=== PATIENT | female | born 1955 | race Caucasian/White ===

== ENCOUNTER 2018-11-27 11:01 | Observation (INO) | payer OTHER ==
--- OUTSIDE RECORDS SUMMARY | 2018-11-27 11:03 | XMS REPORT | Clinical Summary ---
:1955 Author Organization [facility] Address [address] [place] [address] Care Team Providers Name Role Phone Asked, No Pcp Primary Care Provider Unavailable Allergies Active Allergy Reactions Severity Noted Date Comments Clindamycin Hives, Itching 08/15/2018 Medications Medication Sig Dispensed Refills Start Date End Date Status levothyroxine Take 112 mcg 0 Active (SYNTHROID, LEVOXYL) by mouth 112 mcg tablet every morning. multivitamin Take 1 tablet 0 Active (THERAGRAN) tablet by mouth daily. cholecalciferol, Take 1 0 Active vitamin D3, (VITAMIN capsule by D3 ORAL) mouth daily. aspirin (ECOTRIN) 81 Take 81 mg by 0 Active MG enteric coated mouth tablet nightly. apremilast (OTEZLA) Take 30 mg by 0 Active 30 mg tablet mouth 2 (two) times a day. atorvastatin Take 1 tablet 30 tablet 0 08/16/2018 Discontinued (LIPITOR) 40 MG (40 mg total) 8 tablet by mouth nightly for 30 days. cyclobenzaprine Take 1 tablet 7 tablet 0 08/16/2018 Discontinued (FLEXERIL) 5 mg (5 mg total) 8 tablet by mouth 3 (three) times a day as needed for muscle spasms for up to 30 days. atorvastatin Take 1 tablet 30 tablet 0 08/16/2018 (LIPITOR) 40 MG (40 mg total) 8 tablet by mouth nightly for 30 days. cyclobenzaprine Take 1 tablet 7 tablet 0 08/16/2018 (FLEXERIL) 5 mg (5 mg total) 8 tablet by mouth 3 (three) times a day as needed for muscle spasms for up to 30 days. Active Problems Problem Noted Date Chest pain in adult 08/15/2018 Encounters Date Type Specialty Care Team Description 08/15/2018 - Emergency General Internal Eadeh, Eleonora, MD Chest pain in adult 08/16/2018 Medicine Mignon Zepeda (Primary Dx) MD Mónica after 11/26/2017 Immunizations Name Dates Previously Given Next Due FLUCELVAX QUAD PF (0.5mL syringe) 08/16/2018 Social History Tobacco Use Types Packs/Day Years Used Date Never Assessed Sex Assigned at Date Recorded Not on file Job Start Date Occupation Industry Not on file Not on file Not on file Travel History Travel Start Travel End No recent travel history available. Last Filed Vital Signs Vital Sign Reading Time Taken Blood Pressure 114/58 08/16/2018 12:35 PM [employer] Pulse 66 08/16/2018 12:35 PM [employer] Temperature 35.8 C (96.4 F) 08/16/2018 12:35 PM [employer] Respiratory Rate 18 08/16/2018 12:35 PM [employer] Oxygen Saturation 98% 08/16/2018 12:35 PM [employer] Inhaled Oxygen Concentration - - Weight 87.5 kg (192 lb 12.8 oz) 08/15/2018 8:58 PM [employer] Height 165.1 cm (5' 5") 08/15/2018 8:58 PM [employer] Body Mass Index 32.08 08/15/2018 8:58 PM [employer] Plan of Treatment Health Maintenance Due Date Last Done Comments CERVICAL CANCER SCREENING 1978 BREAST CANCER SCREENING 2007 COLON CANCER SCREENING 2007 SHINGLES VACCINES (#1) 2007 INFLUENZA VACCINE Completed 08/16/2018 Procedures Procedure Name Priority Date/Time Associated Comments Diagnosis POC GLUCOSE Routine 08/16/2018 9:42 Results for this AM [employer] procedure are in the results section. CV CTA CORONARY Routine 08/16/2018 8:40 Results for this ARTERIES W CONTRAST AM [employer] procedure are in the results section. ESTIMATED GFR Routine 08/16/2018 3:39 Results for this AM [employer] procedure are in the results section. TROPONIN Routine 08/16/2018 3:39 Results for this AM [employer] procedure are in the results section. HEMOGLOBIN A1C Routine 08/16/2018 3:39 Results for this AM [employer] procedure are in the results section. PROTHROMBIN TIME WITH Routine 08/16/2018 3:39 Results for this INR AM [employer] procedure are in the results section. HC COMPLETE BLD COUNT Routine 08/16/2018 3:39 Results for this W/AUTO DIFF AM [employer] procedure are in the results section. PHOSPHORUS LEVEL Routine 08/16/2018 3:39 Results for this AM [employer] procedure are in the results section. MAGNESIUM LEVEL Routine 08/16/2018 3:39 Results for this AM [employer] procedure are in the results section. THYROID STIMULATING Routine 08/16/2018 3:39 Results for this HORMONE AM [employer] procedure are in the results section. LIPID PANEL Routine 08/16/2018 3:39 Results for this AM [employer] procedure are in the results section. CREATINE KINASE, TOTAL Routine 08/16/2018 3:39 Results for this (CPK) AM [employer] procedure are in the results section. BASIC METABOLIC PANEL Routine 08/16/2018 3:39 Results for this AM [employer] procedure are in the results section. TROPONIN Routine 08/15/2018 9:36 Results for this PM [employer] procedure are in the results section. ECG 12-LEAD Routine 08/15/2018 9:09 Results for this PM [employer] procedure are in the results section. XR CHEST 1 VW PORTABLE STAT 08/15/2018 7:54 Results for this PM [employer] procedure are in the results section. ESTIMATED GFR STAT 08/15/2018 4:40 Results for this PM [employer] procedure are in the results section. TROPONIN STAT 08/15/2018 4:40 Results for this PM [employer] procedure are in the results section. COMPREHENSIVE STAT 08/15/2018 4:40 Results for this METABOLIC PANEL PM [employer] procedure are in the results section. HC COMPLETE BLD COUNT STAT 08/15/2018 4:40 Results for this W/AUTO DIFF PM [employer] procedure are in the results section. ECG 12-LEAD STAT 08/15/2018 4:22 Results for this PM [employer] procedure are in the results section. after 11/26/2017 Results POC glucose (08/16/2018 9:42 AM [employer]) POC glucose 96 65 - 99 mg/dL [facility] Comment: [facility] Notified RN Meter ID: [id number] Farrowing Manager: Kel Moya Performing Organization Address City/State/Zipcode Phone Number [facility] DEPARTMENT OF PATHOLOGY AND [address] [place] [phone] GENOMIC MEDICINE [address] [address] Cv cta coronary arteries w contrast and ffr if needed (08/16/2018 8:40 AM [employer]) Narrative Performed At [facility] Nuclear Cardiology and Cardiac CT [address] [place] [address] CTA Coronary Arteries Report Pat.Name:FALGUNI LEYVA Pat.ID:[id number] .Date: 08/16/2018 Refer.MD:MIGNON ZEPEDA MD Exam Time: 8:17:00 AMStudy Type:CTA Coronary Arteries Height:65inWeight: 192lb BSA: 1.95 m2 DOBAge:1954,63Y Sex: FEMALEBP: 127/60 HR:51 bpm Nuclear Tech:RUMA Anthony(N)(CT) CPT - 4: Krishna PayNuclear Event ID: [id number] Order ID:[id number] Reason for Study:CAD Procedures:CT Prospective (intervals) Race:C SUMMARY: Technique: IV contrast was administered and sequential 0.[address] cuts were obtained through the chest using [facility] Obatech CT scanner. Post-processing and 3D reconstruction were done using the [employer] workstation. Interactive image viewing and volumetric display and analysis were also performed. CTA RESULTS Left Main: A normal sized4.6 mm artery which arises normally from the left sinus of Valsalva and divides into the left anterior descending and circumflex coronary arteries. No significant atherosclerotic plaque is present. Left anterior descending (LAD): A normal sized 3.5mm artery which wraps around the apex and gives off three diagonal branches. No significant atherosclerotic plaque is present. The first diagonal is a 1.0 mm artery which has no significant atherosclerotic plaque. The second diagonal is a 1.2 mm artery which has no significant atherosclerotic plaque. The third diagonal is a 1.5 mm artery which has no significant atherosclerotic plaque. Left circumflex: A normal sized 4.0 mm non-dominant artery which gives off two major obtuse marginal arteries before terminating in the AV groove. No significant atherosclerotic plaque is present. The first obtuse marginal is a 3.6 mm bifurcating artery which has no significant atherosclerotic plaque. The second obtuse marginal is a 2.2 mm bifurcating artery which has mild calcified atherosclerotic plaque but no significant stenosis. Right coronary artery: A normal sized 4.1 mm dominant artery which arises normally from the right sinus of Valsalva and gives off several right ventricular branches, the posterior descending artery and the posterolateral artery.Mild calcified and noncalcified atherosclerotic plaque is present in the proximal and mid segments with approximately 30% stenosis in the mid segment. The posterior descending is a 1.3 mm artery which has no significant atherosclerotic plaque. The posterolateral branch is a 2.2 mm trifurcating artery which has no significant atherosclerotic plaque. Stents: None. Bypass Grafts: None. Pulmonary Arteries: Normal pulmonary artery sizes with no proximal thrombus identified. Left Atrial and Pulmonary Vein(PV) Dimensions: Left atrial size (A-P diameter) 3.1 cm. Normal PV anatomy Left superior PV15 mm. Left inferior PV14 mm. Right superior PV16 mm. Right inferior PV16 mm. There is no evidence of the left atrial appendage clot. Left Ventricular Valve Morphology/Function: LV septal wall thickness 9 mm. Aortic valve has no evidence of regurgitation. Mitral valve is normal without significant stenosis. Thoracic Aortic Dimensions: No aortic aneurysm or dissection is seen. Aortic root: 3.0 cm. Sinotubular junction 2.5 cm. Mid ascending thoracic aorta 2.7 cm. Descending thoracic aorta 2.4 cm. Pericardium: No pericardial effusion or pericardial thickening. Non-Cardiac Findings: Small hiatal hernia. CONCLUSION CT coronary angiography shows has mild coronary atherosclerosis but no significant stenosis. Normal PV anatomy. No aortic aneurysm or dissection is seen. There is no evidence of left atrial appendage thrombus. Small hiatal hernia. STUDY QUALITY The study quality is excellent. COMMENTS: None. The above report was based on a dedicated Cardiovascular CTA Protocol and interpreted by a Branch Rental Manager.Should a more comprehensive assessment of non-cardiovascular findings be desired, please consult a radiologist.These images are available in the [facility] [employer] PACS system. Signed 08/16/2018 12:55 PM Deon Christy MD Procedure Note Interface, Radiology Results In - 08/16/2018 12:55 PM [employer] Nuclear Cardiology and Cardiac CT [address] [address] CTA Coronary Arteries Report Pat.Name: LINDAFALGUNI Bradley Pat.ID: [id number] .Date: 08/16/2018 Refer.MD: MIGNON ZEPEDA MD Exam Time: 8:17:00 AM Study Type:CTA Coronary Arteries Height: 65in Weight: 192lb BSA: 1.95 m2 Age: 11 1955,63Y Sex: FEMALE BP: 127/60 HR: 51 bpm Nuclear Tech:RUMA Anthony(Jose Carlos)(CT) CPT - 4: Krishna Pay Nuclear Event ID:[id number] Order ID: [id number] Reason for Study:CAD Procedures:CT Prospective (intervals) Race: C SUMMARY: Technique: IV contrast was administered and sequential 0.[address] cuts were obtained through the chest using the Siem[employer] Somatom Force CT scanner. Post-processing and 3D reconstruction were done using the [employer] workstation. Interactive image viewing and volumetric display and analysis were also performed. CTA RESULTS Left Main: A normal sized 4.6 mm artery which arises normally from the left sinus of Valsalva and divides into the left anterior descending and circumflex coronary arteries. No significant atherosclerotic plaque is present. Left anterior descending (LAD): A normal sized 3.5mm artery which wraps around the apex and gives off three diagonal branches. No significant atherosclerotic plaque is present. The first diagonal is a 1.0 mm artery which has no significant atherosclerotic plaque. The second diagonal is a 1.2 mm artery which has no significant atherosclerotic plaque. The third diagonal is a 1.5 mm artery which has no significant atherosclerotic plaque. Left circumflex: A normal sized 4.0 mm non-dominant artery which gives off two major obtuse marginal arteries before terminating in the AV groove. No significant atherosclerotic plaque is present. The first obtuse marginal is a 3.6 mm bifurcating artery which has no significant atherosclerotic plaque. The second obtuse marginal is a 2.2 mm bifurcating artery which has mild calcified atherosclerotic plaque but no significant stenosis. Right coronary artery: A normal sized 4.1 mm dominant artery which arises normally from the right sinus of Valsalva and gives off several right ventricular branches, the posterior descending artery and the posterolateral artery. Mild calcified and noncalcified atherosclerotic plaque is present in the proximal and mid segments with approximately 30% stenosis in the mid segment. The posterior descending is a 1.3 mm artery which has no significant atherosclerotic plaque. The posterolateral branch is a 2.2 mm trifurcating artery which has no significant atherosclerotic plaque. Stents: None. Bypass Grafts: None. Pulmonary Arteries: Normal pulmonary artery sizes with no proximal thrombus identified. Left Atrial and Pulmonary Vein (PV) Dimensions: Left atrial size (A-P diameter) 3.1 cm. Normal PV anatomy Left superior PV15 mm. Left inferior PV14 mm. Right superior PV16 mm. Right inferior PV16 mm. There is no evidence of the left atrial appendage clot. Left Ventricular Valve Morphology/Function: LV septal wall thickness 9 mm. Aortic valve has no evidence of regurgitation. Mitral valve is normal without significant stenosis. Thoracic Aortic Dimensions: No aortic aneurysm or dissection is seen. Aortic root: 3.0 cm. Sinotubular junction 2.5 cm. Mid ascending thoracic aorta 2.7 cm. Descending thoracic aorta 2.4 cm. Pericardium: No pericardial effusion or pericardial thickening. Non-Cardiac Findings: Small hiatal hernia. CONCLUSION CT coronary angiography shows has mild coronary atherosclerosis but no significant stenosis. Normal PV anatomy. No aortic aneurysm or dissection is seen. There is no evidence of left atrial appendage thrombus. Small hiatal hernia. STUDY QUALITY The study quality is excellent. COMMENTS: None. The above report was based on a dedicated Cardiovascular CTA Protocol and interpreted by a Branch Rental Manager. Should a more comprehensive assessment of non-cardiovascular findings be desired, please consult a radiologist. These images are available in the [facility] [employer] PACS system. Signed 08/16/2018 12:55 PM Deon Christy MD Performing Organization Address City/State/Zipcode Phone Number [facility] [address] [place] [address] Estimated GFR (08/16/2018 3:39 AM [employer])Only the most recent of2 resultswithin the time period is included. Estimated GFR >=90 mL/min/1.73 m2 [facility] Comment: HOSPITAL CatergoryUnitsInterpretation G1 >=90 Normal or high G2 60-89Mildly decreased [id number] to moderately decreased [id number] to severely decreased G4 15-29Severely decreased G5 <15Kidney failure The eGFR was calculated using the Chronic Kidney Disease Epidemiology Collaboration (CKD-EPI) equation. Interpretation is based on recommendations of the National Kidney Foundation-Kidney Disease Outcomes Quality Initiative (NKF-KDOQI) published in 2014. Specimen Plasma specimen Performing Organization Address City/[facility] Phone Number [facility] DEPARTMENT OF PATHOLOGY AND [address] [place] [address] Troponin (08/16/2018 3:39 AM [employer])Only the most recent of3 resultswithin the time period is included. Troponin <0.30 0.00 - 0.30 ng/mL [facility] Comment: 0.30 - 1.49 ng/mlMay indicate increased risk of acute coronary syndrome. >=1.5 ng/mlConsistent with acute myocardial infarction. The diagnostic value of a single normal or non-diagnostic result is questionable.Serial samples at 2-6 hour intervals are required to rule out acute myocardial injury. Specimen Plasma specimen Performing Organization Address [place]/[facility] Phone Number [facility] DEPARTMENT OF PATHOLOGY AND [address] [place] [address] Prothrombin time with INR (08/16/2018 3:39 AM [employer]) Prothrombin time 13.5 11.5 - 14.5 sec [facility] INR 1.1 [facility] Comment: HOSPITAL The International Normalized Ratio (INR) is a therapeutic monitoring tool for patients who are stable on oral anticoagulant therapy. An INR of 2.0-3.0 is suggested for deep vein thrombosis/pulmonary embolism. Specimen Blood Performing Organization Address [place]/[facility] Phone Number [facility] DEPARTMENT OF PATHOLOGY AND [address] [place] [address] CBC with platelet and differential (08/16/2018 3:39 AM [employer])Only the most recent of2 resultswithin the time period is included. WBC 6.00 4.50 - 11.00 k/uL [facility] RBC 4.13 (L) 4.20 - 5.50 m/uL [facility] HGB 12.5 12.0 - 16.0 g/dL [facility] HCT 37.0 37.0 - 47.0 % [facility] MCV 89.6 82.0 - 100.0 fL [facility] MCH 30.3 27.0 - 34.0 pg [facility] MCHC 33.8 31.0 - 37.0 g/dL [facility] RDW - SD 38.7 37.0 - 55.0 fL [facility] MPV 10.1 8.8 - 13.2 fL [facility] Platelet count 239 150 - 400 k/uL [facility] Nucleated RBC 0.00 /100 WBC [facility] Neutrophils 43.8 39.0 - 69.0 % [facility] Lymphocytes 46.5 (H) 25.0 - 45.0 % [facility] Monocytes 7.2 0.0 - 10.0 % [facility] Eosinophils 1.5 0.0 - 5.0 % [facility] Basophils 0.7 0.0 - 1.0 % [facility] Immature granulocytes 0.3Comment: "Immature 0.0 - 1.0 % [facility] (promyelocytes, myelocytes, metamyelocytes) Specimen Blood Performing Organization Address [place]/[facility] Phone Number [facility] DEPARTMENT OF PATHOLOGY AND [address] [place] [phone] [address] Thyroid stimulating hormone (08/16/2018 3:39 AM [employer]) TSH 2.02 0.27 - 4.20 uIU/mL [facility] Specimen Plasma specimen Performing Organization Address City/[facility] Phone Number [facility] DEPARTMENT OF PATHOLOGY AND [address] [place] [phone] [address] Phosphorus level (08/16/2018 3:39 AM [employer]) Phosphorus 3.6 2.4 - 4.5 mg/dL [facility] Specimen Plasma specimen Performing Organization Address [place]/[facility] Phone Number [facility] DEPARTMENT OF PATHOLOGY AND [address] [place] [phone] [address] Magnesium level (08/16/2018 3:39 AM [employer]) Magnesium 2.2 1.6 - 2.4 mg/dL [facility] Specimen Plasma specimen Performing Organization Address City/[facility] Phone Number [facility] DEPARTMENT OF PATHOLOGY AND [address] [place] [phone] Hemoglobin A1c (08/16/2018 3:39 AM [employer]) Hemoglobin A1C 5.6 4.0 - 5.6 % [facility] Comment: HbA1c cutoffs for diagnosing diabetes: 4.0% - 5.6%=normal 5.7% - 6.4%=increased risk for diabetes (prediabetes) >=6.5%=diabetes Goals for glycemic control (ADA 2016) < 7.0%Target for non adults with diabetes. More or less stringent targets may be appropriate for individual patients. <7.5% Target for Children and adolescents with type 1 diabetes. Specimen Blood Performing Organization Address City/[facility] Phone Number [facility] DEPARTMENT OF PATHOLOGY AND [address] [place] [phone] Creatine kinase, total (CPK) (08/16/2018 3:39 AM [employer]) Creatine kinase 101 26 - 192 U/L [facility] Specimen Plasma specimen Performing Organization Address City/[facility] Phone Number [facility] DEPARTMENT OF PATHOLOGY AND [address] [place] [phone] Lipid panel (08/16/2018 3:39 AM [employer]) Cholesterol 185 <200 mg/dL [facility] Triglycerides 253 (H) <150 mg/dL [facility] HDL cholesterol 32 (L) >40 mg/dL [facility] LDL cholesterol 123 (H)Comment: Result <100 mg/dL [facility] obtained by direct [facility] measurement Lipid panel interpretation [employer]ch[employer] [facility] Comment: HOSPITAL Total Cholesterol (mg/dL) <200 Desirable 263-975Zpucmmiyea-mfhl >=240High Triglycerides (mg/dL) <150 Normal 731-200Xueyyrnfjt-krbu 200-499High >=500Very high HDL Cholesterol (mg/dL) <40Low (male) <40Low (female) LDL Cholesterol (mg/dL) <100 Optimal 100-129Near or above optimal 104-939Zdiregijcf-tyrs 160-189High >=190Very high Risk Catergories that modify LDL goals. Risk CatergoriesLDL goal (mg/dL) CHD and CHD risk equivalent<100 (10-year risk >20%) Multiple (2+) risk factors <130 (10-year risk=<20%) 0-1 risk factors <160 (<10-year risk) Defining levels of lipids in metabolic syndrome Triglycerides>=150 mg/dL HDL Cholesterol Men<40 mg/dL Women<40 mg/dL Non-HDL cholesterol is a second target for therapy in persons with high triglycerides (>=200 mg/dL) Specimen Plasma specimen Performing Organization Address City/[facility] Phone Number [facility] DEPARTMENT OF PATHOLOGY AND [address] [place] [address] Basic metabolic panel (08/16/2018 3:39 AM [employer]) Sodium 142 135 - 148 mEq/L [facility] Potassium 3.9 3.5 - 5.0 mEq/L [facility] Chloride 107 98 - 112 mEq/L [facility] CO2 22 (L) 24 - 31 mEq/L [facility] Anion gap 13@ANIO 7 - 15 mEq/L [facility] BUN 18 8 - 23 mg/dL [facility] Creatinine 0.60 0.50 - 0.90 mg/dL [facility] Glucose 117 (H) 65 - 99 mg/dL [facility] Calcium 8.9 8.8 - 10.2 mg/dL [facility] Specimen Plasma specimen Performing Organization Address City/[facility] Phone Number [facility] DEPARTMENT OF PATHOLOGY AND [address] [place] [address] ECG 12 lead (08/15/2018 9:09 PM [employer])Only the most recent of2 resultswithin the time period is included. Ventricular rate 76 [facility] Atrial rate 76 [facility] AR interval 126 [facility] QRSD interval 88 [facility] QT interval 402 [facility] QTC interval 452 [facility] MUSE P axis 1 80 [facility] MUSE QRS axis 1 109 [facility] MUSE T wave axis 92 [facility] MUSE EKG impression Normal sinus rhythm-Rightward [facility] MUSE axis-Nonspecific T wave abnormality-Abnormal ECG-In automated comparison with ECG of 15-AUG-2018 16:22,-QRS axis shifted right- Narrative Performed At Performing Organization Address [place]/[facility] Phone Number [facility] MUSE [address] [place] [address] XR Chest 1 Vw Portable (08/15/2018 7:54 PM [employer]) Narrative Performed At EXAMINATION:XR CHEST 1 VW PORTABLE [facility] CLINICAL HISTORY:chest pain XR CHEST 1 VW PORTABLEimages are submitted COMPARISON:NONE FINDINGS: Lines/tubes:None. Heart and mediastinum:Tortuous thoracic aorta. Otherwise, unremarkable. Lungs:The lungs are well inflated and clear. There is no evidence of pneumonia or pulmonary edema. Pleura:There is no pleural effusion or pneumothorax. Bones:No acute osseous abnormality. IMPRESSION: Negative for acute cardiopulmonary disease. [facility]-[id number] Procedure Note Hm Interface, Radiology Results Incoming - 08/15/2018 8:03 PM [employer] EXAMINATION: XR CHEST 1 VW PORTABLE CLINICAL HISTORY: chest pain XR CHEST 1 VW PORTABLE images are submitted COMPARISON: NONE FINDINGS: Lines/tubes: None. Heart and mediastinum: Tortuous thoracic aorta. Otherwise, unremarkable. Lungs: The lungs are well inflated and clear. There is no evidence of pneumonia or pulmonary edema. Pleura: There is no pleural effusion or pneumothorax. Bones: No acute osseous abnormality. IMPRESSION: Negative for acute cardiopulmonary disease. [facility]-[id number] Performing Organization Address City/[facility]/Zipcode Phone Number [facility] [address] [place] [address] Comprehensive metabolic panel (08/15/2018 4:40 PM [employer]) Sodium 142 135 - 148 mEq/L [facility] Potassium 3.9 3.5 - 5.0 mEq/L [facility] Chloride 103 98 - 112 mEq/L [facility] CO2 25 24 - 31 mEq/L [facility] Anion gap 14@ANIO 7 - 15 mEq/L [facility] BUN 20 8 - 23 mg/dL [facility] Creatinine 0.68 0.50 - 0.90 mg/dL [facility] Glucose 97 65 - 99 mg/dL [facility] Calcium 9.4 8.8 - 10.2 mg/dL [facility] Protein 7.3 6.3 - 8.3 g/dL [facility] Comment: HOSPITAL 4.6-7.0 g/dL 1 week 4.4-7.6 g/dL 7 months-1year5.1-7.3 g/dL 1-2 years5.6-7.5 g/dL >3 years6.0-8.0 g/dL 18-150 6.3-8.3 g/dL Albumin 4.1 3.5 - 5.0 g/dL [facility] A/G ratio 1.3 0.7 - 3.8 [facility] Alkaline phosphatase 57 35 - 104 U/L [facility] AST 23 10 - 35 U/L [facility] ALT 35 5 - 50 U/L [facility] Total bilirubin 0.4 0.0 - 1.2 mg/dL [facility] Specimen Plasma specimen Performing Organization Address City/State/Zipcode Phone Number [facility] DEPARTMENT OF PATHOLOGY AND [address] [place] [address] [facility] [place] [id number] [place] [address] after 11/26/2017 Insurance Payer Benefit Plan / Group Subscriber ID Type Phone Address AETNA AETNA HMO,POS,EPO, MC/EC xxxxxxxxxx HMO Advance Directives Patient has advance care planning documents on file. For more information, please contact:[address] [address]
--- NOTE | 2018-11-27 11:51 | ER ---
Nurse's Notes [facility] Name: Falguni Bowens Age: 63 yrs Sex: Female : 1955 Arrival Date: 11/27/2018 Time: 11:03 Bed 17 Private MD: Diagnosis: Chest pain, unspecified;Essential (primary) hypertension Presentation: 11/27 11:13 Presenting complaint: Patient states: chest pressure since last night. Pt reports she aa5 was at [facility] for chest pain August 2018 and CTA showed 30% Right coronary artery blockage. Pt states "I never followed-up with a bean viner because my was sick and I was taking care of him". 11:13 Transition of care: patient was not received from another setting of care. Onset of aa5 symptoms was November 2018. Risk Assessment: Do you want to hurt yourself or someone else? Patient reports no desire to harm self or others. Initial Sepsis Screen: Does the patient meet any 2 criteria? No. Patient's initial sepsis screen is negative. Does the patient have a suspected source of infection? No. Patient's initial sepsis screen is negative. Care prior to arrival: None. 11:13 Method Of Arrival: Ambulatory aa5 11:13 Acuity: BRUNO 3 aa5 Historical: - Allergies: 11:13 No Known Allergies; aa5 - PMHx: 11:13 30% Right Coronary Artery blockage; Thyroid problem; aa5 - PSHx: 11:13 L Hip replacement; ; Cholecystectomy; Thyroidectomy; aa5 - Immunization history:: Flu vaccine is up to date. - Social history:: Smoking status: Patient/guardian denies using tobacco. - Ebola Screening: : No symptoms or risks identified at this time. - Family history:: not pertinent. Screenin:16 Abuse screen: Denies threats or abuse. Denies injuries from another. Nutritional sv screening: No deficits noted. Tuberculosis screening: No symptoms or risk factors identified. Fall Risk None identified. Assessment: 11:30 General: Appears in no apparent distress. uncomfortable, well groomed, well developed, sv Behavior is calm, cooperative, appropriate for age. Pain: Complains of pain in anterior aspect of left upper chest and left breast Pain does not radiate. Pain currently is 2 out of 10 on a pain scale. Quality of pain is described as sharp, Pain began 1 day ago. Is continuous. Neuro: Level of Consciousness is awake, alert, obeys commands, Oriented to person, place, time, situation, Moves all extremities. Full function Gait is steady. Cardiovascular: Heart tones S1 S2 present Patient's skin is warm and dry. Pulses are 3+ in right radial artery and left radial artery. Respiratory: Reports shortness of breath on exertion Airway is patent Respiratory effort is even, unlabored, Respiratory pattern is regular, symmetrical. Derm: Skin is pink, warm \\T\\ dry. 12:27 Reassessment: Patient appears in no apparent distress at this time. No changes from sv previously documented assessment. Patient and/or family updated on plan of care and expected duration. Pain level reassessed. Patient is alert, oriented x 3, equal unlabored respirations, skin warm/dry/pink. 13:34 Reassessment: Nurse to call back for report. sv 13:47 Reassessment: Patient appears in no apparent distress at this time. No changes from sv previously documented assessment. Patient and/or family updated on plan of care and expected duration. Pain level reassessed. Patient is alert, oriented x 3, equal unlabored respirations, skin warm/dry/pink. Vital Signs: 11:15 BP 138 / 55; Pulse 93; Resp 18 S; Temp 98.0(TE); Pulse Ox 99% on R/A; Weight 85.28 kg aa5 (R); Height 5 ft. 5 in. (165.10 cm) (R); Pain 2/10; 12:28 BP 110 / 49; Pulse 80; Resp 17; Pulse Ox 100% ; sv 13:29 BP 111 / 64; Pulse 81; Resp 20; Pulse Ox 97% ; sv 11:15 Body Mass Index 31.28 (85.28 kg, 165.10 cm) aa5 ED Course: 11:03 Patient arrived in ED. mr 11:13 Arm band placed on Patient placed in an exam room, on a stretcher. aa5 11:15 Parisa Dubon RN is Primary Nurse. sv 11:16 Patient has correct armband on for positive identification. Placed in gown. Bed in low sv position. nuclear monitoring technician on. Pulse ox on. NIBP on. Door closed. Head of bed elevated. 11:18 Triage completed. aa5 11:28 Efra Ruiz MD is Attending Physician. amada 11:30 Initial lab(s) drawn, by me, sent to lab. Inserted saline lock: 20 gauge in right sv antecubital area, using aseptic technique. Blood collected. Flushed right antecubital with 5 ml normal saline. 11:30 Patient maintains SpO2 saturation greater than 95% on room air. sv 11:50 Audelia Lopez MD is Hospitalizing Provider. amada 12:50 X-ray completed. Portable x-ray completed in exam room. Patient tolerated procedure sw well. 12:51 XRAY Chest (1 view) In Process Unspecified. EDMS 13:47 No provider procedures requiring assistance completed. Patient admitted, IV remains in sv place. intact. Administered Medications: 12:27 Drug: Lovenox 1 mg/kg Route: Sub-Q; Site: right lower abdomen; sv 13:03 Follow up: Response: No adverse reaction sv 12:27 Drug: Pepcid 20 mg Route: IVP; Site: right antecubital; sv 13:03 Follow up: Response: No adverse reaction sv 12:28 Drug: NS 0.9% 1000 ml Route: IV; Rate: 75 ml/hr; Site: right antecubital; sv 13:47 Follow up: Response: No adverse reaction; IV Status: Infusion continued upon admission sv 12:28 Drug: Aspirin 162 mg Route: PO; sv 13:03 Follow up: Response: No adverse reaction sv 12:33 Not Given (Duplicate Order): Lopressor (metoprolol TARTRATE) 50 mg PO once amada 12:45 Drug: Lopressor 25 mg Route: PO; sv 13:02 Follow up: Response: No adverse reaction sv Outcome: 11:51 Decision to Hospitalize by Provider. amada 13:47 Admitted to Tele accompanied by [facility], via wheelchair, room 217, with chart, Report sv called to Isamar ZHAO 13:47 Condition: stable 13:47 Instructed on the need for admit. 14:03 Patient left the ED. iw Signatures: Dispatcher [employer] EDMS Parisa Dubon RN RN sv Anderson, Corey, MD MD cha Rivera, Mary mr Williams, Irene, RN RN iw Calderon, Audri, RN RN aa5 Warren, Shannon sw
--- NOTE | 2018-11-27 11:51 | EDPHYS ---
Physician Documentation [facility] Name: Falguni Bowens Age: 63 yrs Sex: Female : 1955 Arrival Date: 11/27/2018 Time: 11:03 Bed 17 Private MD: ED Physician Efra Ruiz HPI: 11/27 11:45 This 63 yrs old Female presents to ER via Ambulatory with complaints of Chest amada Pain. 11:45 The patient or guardian reports chest pain that is located primarily in the substernal amada area. Onset: 2 day(s) ago. The pain does not radiate. Associated signs and symptoms: The patient has no apparent associated signs or symptoms. The chest pain is described as a heaviness, a pressure, squeezing. Duration: The patient or guardian reports multiple episodes, that have now resolved. Modifying factors: The symptoms are alleviated by nothing. the symptoms are aggravated by nothing. Severity of pain: At its worst the pain was mild in the emergency department the pain has improved mildly. The patient has experienced similar episodes in the past, a few times. Historical: - Allergies: 11:13 No Known Allergies; aa5 - PMHx: 11:13 30% Right Coronary Artery blockage; Thyroid problem; aa5 - PSHx: 11:13 L Hip replacement; ; Cholecystectomy; Thyroidectomy; aa5 - Immunization history:: Flu vaccine is up to date. - Social history:: Smoking status: Patient/guardian denies using tobacco. - Ebola Screening: : No symptoms or risks identified at this time. - Family history:: not pertinent. ROS: 11:45 Constitutional: Negative for fever, chills, and weight loss, Eyes: Negative for injury, amada pain, redness, and discharge, ENT: Negative for injury, pain, and discharge, Neck: Negative for injury, pain, and swelling, Respiratory: Negative for shortness of breath, cough, wheezing, and pleuritic chest pain, Abdomen/GI: Negative for abdominal pain, nausea, vomiting, diarrhea, and constipation, Back: Negative for injury and pain, : Negative for injury, bleeding, discharge, and swelling, MS/Extremity: Negative for injury and deformity, Skin: Negative for injury, rash, and discoloration, Neuro: Negative for headache, weakness, numbness, tingling, and seizure, Psych: Negative for depression, anxiety, suicide ideation, homicidal ideation, and hallucinations, Allergy/Immunology: Negative for hives, rash, and allergies, Endocrine: Negative for neck swelling, polydipsia, polyuria, polyphagia, and marked weight changes, Hematologic/Lymphatic: Negative for swollen nodes, abnormal bleeding, and unusual bruising. 11:45 Cardiovascular: Positive for chest pain. Exam: 11:45 Constitutional: This is a well developed, well nourished patient who is awake, alert, amada and in no acute distress. Head/Face: Normocephalic, atraumatic. Eyes: Pupils equal round and reactive to light, extra-ocular motions intact. Lids and lashes normal. Conjunctiva and sclera are non-icteric and not injected. Cornea within normal limits. Periorbital areas with no swelling, redness, or edema. ENT: Nares patent. No nasal discharge, no septal abnormalities noted. Tympanic membranes are normal and external auditory canals are clear. Oropharynx with no redness, swelling, or masses, exudates, or evidence of obstruction, uvula midline. Mucous membranes moist. Neck: Trachea midline, no thyromegaly or masses palpated, and no cervical lymphadenopathy. Supple, full range of motion without nuchal rigidity, or vertebral point tenderness. No Meningismus. Chest/axilla: Normal chest wall appearance and motion. Nontender with no deformity. No lesions are appreciated. Cardiovascular: Regular rate and rhythm with a normal S1 and S2. No gallops, murmurs, or rubs. Normal PMI, no JVD. No pulse deficits. Respiratory: Lungs have equal breath sounds bilaterally, clear to auscultation and percussion. No rales, rhonchi or wheezes noted. No increased work of breathing, no retractions or nasal flaring. Abdomen/GI: Soft, non-tender, with normal bowel sounds. No distension or tympany. No guarding or rebound. No evidence of tenderness throughout. Back: No spinal tenderness. No costovertebral tenderness. Full range of motion. Skin: Warm, dry with normal turgor. Normal color with no rashes, no lesions, and no evidence of cellulitis. MS/ Extremity: Pulses equal, no cyanosis. Neurovascular intact. Full, normal range of motion. Neuro: Awake and alert, GCS 15, oriented to person, place, time, and situation. Cranial nerves II-XII grossly intact. Motor strength 5/5 in all extremities. Sensory grossly intact. Cerebellar exam normal. Normal gait. Psych: Awake, alert, with orientation to person, place and time. Behavior, mood, and affect are within normal limits. Vital Signs: 11:15 BP 138 / 55; Pulse 93; Resp 18 S; Temp 98.0(TE); Pulse Ox 99% on R/A; Weight 85.28 kg aa5 (R); Height 5 ft. 5 in. (165.10 cm) (R); Pain 2/10; 12:28 BP 110 / 49; Pulse 80; Resp 17; Pulse Ox 100% ; sv 13:29 BP 111 / 64; Pulse 81; Resp 20; Pulse Ox 97% ; sv 11:15 Body Mass Index 31.28 (85.28 kg, 165.10 cm) aa5 MDM: 11:28 Patient medically screened. [facility] 11:46 Data reviewed: vital signs, nurses notes, lab test result(s), EKG, radiologic studies, [facility] CT scan, plain films. 11/27 11:28 Order name: Basic Metabolic Panel; Complete Time: 12:32 11/27 11:28 Order name: CBC with Diff; Complete Time: 12:05 11/27 11:28 Order name: LFT's; Complete Time: 12:32 11/27 11:28 Order name: Magnesium; Complete Time: 12:32 11/27 11:28 Order name: NT PRO-BNP; Complete Time: 12:32 11/27 11:28 Order name: PT-INR; Complete Time: 12:32 11/27 11:28 Order name: Troponin (emerg Dept Use Only); Complete Time: 12:32 11/27 11:28 Order name: XRAY Chest (1 view) 11/27 11:34 Order name: Lipase; Complete Time: 12:53 [facility] 11/27 11:34 Order name: TSH; Complete Time: 12:53 [facility] 11/27 13:05 Order name: Troponin I [facility] 11/27 13:05 Order name: Troponin I [facility] 11/27 13:05 Order name: Troponin I [facility] 11/27 13:05 Order name: Troponin I [facility] 11/27 11:16 Order name: EKG; Complete Time: 11:16 11/27 11:16 Order name: EKG - Nurse/Tech; Complete Time: 11:44 sv 11/27 11:28 Order name: Cardiac monitoring; Complete Time: 11:44 sv 11/27 11:28 Order name: IV Saline Lock; Complete Time: 11:44 sv 11/27 11:28 Order name: Labs collected and sent; Complete Time: 11:44 sv 11/27 11:28 Order name: O2 Per Protocol; Complete Time: :44 sv 11/27 11:28 Order name: O2 Sat Monitoring; Complete Time: 11:44 sv 11/27 13:02 Order name: Diet Heart Healthy; Complete Time: 13:02 sv 11/27 13:05 Order name: CONS Physician Consult EDMS 11/27 13:05 Order name: Echo with Doppler EDMS Administered Medications: 12:27 Drug: Lovenox 1 mg/kg Route: Sub-Q; Site: right lower abdomen; sv 13:03 Follow up: Response: No adverse reaction sv 12:27 Drug: Pepcid 20 mg Route: IVP; Site: right antecubital; sv 13:03 Follow up: Response: No adverse reaction sv 12:28 Drug: NS 0.9% 1000 ml Route: IV; Rate: 75 ml/hr; Site: right antecubital; sv 13:47 Follow up: Response: No adverse reaction; IV Status: Infusion continued upon admission sv 12:28 Drug: Aspirin 162 mg Route: PO; sv 13:03 Follow up: Response: No adverse reaction sv 12:33 Not Given (Duplicate Order): Lopressor (metoprolol TARTRATE) 50 mg PO once amada 12:45 Drug: Lopressor 25 mg Route: PO; sv 13:02 Follow up: Response: No adverse reaction sv Disposition: 11/27/18 11:51 Hospitalization ordered by Audelia Lopez for Observation. Preliminary diagnosis are Chest pain, unspecified, Essential (primary) hypertension. - Bed requested for Telemetry/MedSurg (observation). - Status is Observation. iw - Condition is Fair. - Problem is new. - Symptoms have improved. UTI on Admission? No Signatures: Dispatcher [employer] EDMS Bethany Barakat Stephanie, RN RN Efra Ruiz MD MD cha Williams, Irene, RN RN Silverman, Leah, RN RN aa5 Corrections: (The following items were deleted from the chart) 13:27 11:51 Hospitalization Ordered by Audelia Lopez MD for Observation. Preliminary bd diagnosis is Chest pain, unspecified; Essential (primary) hypertension. Bed requested for Telemetry/MedSurg (observation). Status is Observation. Condition is Fair. Problem is new. Symptoms have improved. UTI on Admission? No. amada 14:03 13:27 11/27/2018 11:51 Hospitalization Ordered by Audelia Lopez MD for Observation. iw Preliminary diagnosis is Chest pain, unspecified; Essential (primary) hypertension. Bed requested for Telemetry/MedSurg (observation). Status is Observation. Condition is Fair. Problem is new. Symptoms have improved. UTI on Admission? No. bd
[2018-11-27 11:58] LABS: Absolute Lymphocytes (CBC) 1.1 K/uL (0.7-4.9); Absolute Monocytes 0.4 K/uL (0.1-1.3); Basophils % 0.4 % (0-1.3); Eosinophils % 0.9 % (0-4.4); Hematocrit 39.1 % (36.0-45.0); MPV 8.6 fL (7.6-11.3); Monocytes % 4.9 % (3.3-12.3); RBC Red Blood Cell Count 4.43 M/uL (3.86-4.86)
[2018-11-27 12:07] LABS: Protime INR 1.04
[2018-11-27] MEDS ORDERED: ENOXAPARIN 100 MG/ML SYR SQ ONE (12:15)
[2018-11-27] MEDS ORDERED: ASPIRIN 81 MG CHEWABLE TABLET ONE (12:15)
[2018-11-27] MEDS ORDERED: NA CHLORIDE 0.9% 1,000 ML ONE (12:15)
[2018-11-27] MEDS ORDERED: FAMOTIDINE 20 MG/2 ML VIAL IV ONE (12:15)
[2018-11-27 12:21] LABS: ALT/SGPT 48 U/L (12-78); AST/SGOT 23 U/L (15-37); Albumin 3.7 g/dL (3.4-5.0); Alkaline Phosphatase 77 U/L (45-117); BUN Blood Urea Nitrogen 17 mg/dL (7-18); Bicarbonate 29 mmol/L (21-32); Bilirubin Direct 0.1 mg/dL (0-0.2); Bilirubin Total 0.5 mg/dL (0.2-1.0); Glucose Level 125 mg/dL (74-106); Magnesium 2.1 mg/dL (1.8-2.4); NT PRO-BNP 27 pg/mL (<125); Potassium 3.8 mmol/L (3.5-5.1); Protein, Total 7.1 g/dL (6.4-8.2); Sodium Level 142 mmol/L (136-145); Troponin (Emerg Dept Use Only) < 0.02 ng/mL (0.0-0.045)
[2018-11-27 12:45] LABS: Thyroid Stimulating Hormone 1.06 uIU/mL (0.360-3.740)
[2018-11-27] MEDS ORDERED: METOPROLOL TAR 25 MG TAB ONE (12:47)
--- NOTE | 2018-11-27 13:00 | RAD REPORT ---
EXAM DESCRIPTION: RAD - Chest Single View - 11/27/2018 12:52 pm CLINICAL HISTORY: CHEST PAIN Chest pain. COMPARISON: No comparisons FINDINGS: Portable technique limits examination quality. The lungs are grossly clear. The heart is normal in size. No displaced fractures. IMPRESSION: No acute intrathoracic process suspected.
[2018-11-27] MEDS ORDERED: PNEUMOCOCCAL VACCINE 0.5 ML IMVAC ONE (15:00)
[2018-11-27] MEDS ORDERED: PANTOPRAZOLE 40MG TABLET PO ONE (16:00)
--- NOTE | 2018-11-27 18:39 | EKG ---
Test Date: 2018-11-27 Test Time: 11:28:20 Data Entry Assistant: ESTEFANY MEASUREMENT RESULTS: Intervals: Rate: 88 NM: 138 QRSD: 86 QT: 388 QTc: 469 Dana: P: 30 NM: 138 QRS: 39 T: 16 INTERPRETIVE STATEMENTS: Normal sinus rhythm Normal ECG No previous ECG available for comparison Electronically Signed On 11-27-18 18:38:54 [employer] by Man Lang
--- NOTE | 2018-11-27 20:59 | CON ---
History Of Present Illness: Mrs. Bowens is 63. She came to the hospital with chest pain. The pain is epigastric, burning. It was constant for several hours , went away for a few hours, recurred, and over the last 18-20 hours it has been there, probably 16 hours. She is worried about it being her heart. She has a history of gallbladder surgery, thyroid surgery, several other surgeries and she has a family history of heart disease. In August 2018, she was at [facility] and had a cardiac workup for chest pain that was negative. It included a CT angio of the coronaries with contrast, which revealed a 30% plaque in the right coronary. They did not give a calcium score, but there was mild plaquing. No stenosis. She did not undergo a cardiac cath or a stent. She was started on Lipitor and continues to take Lipitor. She has never had myocardial infarction, stroke, or vascular disease. Outpatient medications have been thyroid replacement hormone and Lipitor. We do not seem to have an accurate list of her home medications. She has also had a section, left hip replacement, thyroidectomy. Allergies: SHE REPORTS ALLERGIES TO CLINDAMYCIN AND TOPICAL ALLERGIES. Physical exam is normal. Diagnostic Data: She has had a chest x-ray that is within normal limits. An EKG is within normal limits. Laboratory Data: Her laboratory exam reveals normal complete blood count. Her blood sugar is 125. It is random and a troponin is less than 0.02. All of her other blood tests are normal. Impression: The patient probably does not have CAD at all and I would think the pain she is having is more likely to be due to gastroesophageal reflux disease. I think we should do a stress test tomorrow. A pharmacologic nuclear stress would be most likely to be completed to be useful. If it is normal, I would end the workup there. NBA Voice ID: [id number] Report ID: [id number] ISAIAH
[2018-11-27] MEDS ORDERED: ATORVASTATIN 40 MG TAB PO SCH (21:00)
[2018-11-27] MEDS ORDERED: ASPIRIN 81 MG CHEWABLE TABLET PO SCH (21:00)
[2018-11-27 21:13] LABS: Urine Appearance CLEAR; Urine Bilirubin NEGATIVE (NEG); Urine Blood NEGATIVE (NEG); Urine Color YELLOW; Urine Glucose NEGATIVE (NEG); Urine Protein NEGATIVE (NEG); Urine Specific Gravity <=1.005 (1.005-1.030); Urine Urobilinogen 0.2 mg/dL (0.2-1.0); Urine pH 6.5 (5.0-7.0)
[2018-11-27 21:16] LABS: Urine Microscopic Reflex NO UMIC
[2018-11-28 03:14] LABS: Absolute Lymphocytes (CBC) 1.9 K/uL (0.7-4.9); Absolute Monocytes 0.5 K/uL (0.1-1.3); Basophils % 0.6 % (0-1.3); Eosinophils % 1.2 % (0-4.4); Hematocrit 38.2 % (36.0-45.0); Lymphocytes % 22.3 % (15.3-44.8); MPV 8.3 fL (7.6-11.3); Monocytes % 5.9 % (3.3-12.3); RBC Red Blood Cell Count 4.33 M/uL (3.86-4.86)
[2018-11-28 03:28] LABS: ALT/SGPT 44 U/L (12-78); AST/SGOT 19 U/L (15-37); Albumin 3.6 g/dL (3.4-5.0); Alkaline Phosphatase 71 U/L (45-117); BUN Blood Urea Nitrogen 18 mg/dL (7-18); Bicarbonate 29 mmol/L (21-32); Bilirubin Total 0.5 mg/dL (0.2-1.0); Glucose Level 112 mg/dL (74-106); Potassium 3.9 mmol/L (3.5-5.1); Protein, Total 6.9 g/dL (6.4-8.2); Sodium Level 144 mmol/L (136-145); Troponin I < 0.02 ng/mL (0.0-0.045)
[2018-11-28] MEDS ORDERED: LEVOTHYROXINE SOD 0.112 MG TAB PO SCH (06:30)
[2018-11-28] MEDS ORDERED: REGADENOSON 0.4 MG/5 ML SYR IV ONE (08:13)
[2018-11-28] MEDS ORDERED: ENOXAPARIN 40 MG/0.4 ML SQ SCH (09:00)
[2018-11-28] MEDS ORDERED: VITAMIN D 5,000 UNIT CAP PO SCH (09:00)
[2018-11-28] MEDS ORDERED: MULTIVITAMIN TAB PO SCH (09:00)
--- NOTE | 2018-11-28 10:27 | RAD REPORT ---
EXAM DESCRIPTION: NM - Rest Stress Cardiac Imaging - 11/28/2018 10:17 am CLINICAL HISTORY: Chest pain COMPARISON: None. TECHNIQUE: The patient was administered approximately 10 mCi of Tc 99m Sestamibi prior to resting SP ECT imaging of the heart. The patient was then administered approximately 30 mCi of Tc 99m Sestamibi following exercise or pharmacologic stress. Multiplanar SPECT images were reviewed. FINDINGS: The end diastolic volume is 74 ml, the end systolic volume is 25 ml, and the ejection frac tion is 66 %. No stress-induced ischemia confirmed. There is a small fixed defect anterior wall at the apex that is probably breast attenuation artifact rather than scarring. IMPRESSION: No stress-induced ischemic changes seen. Small anterior wall apex fixed defect likely attenuation artifact rather than scarring. Normal ventricular volume and ejection fraction
--- NOTE | 2018-11-28 11:33 | TREADPHA ---
DX: CHEST PAIN Date of Study: 11/28/18 Ht: 5 5 Wt: 188 lb 0 oz Consulting Physician: MELANIE MEDICATIONS: ASPIRIN, LIPITOR, LOVENOX, VITAMIN D, SYNTHROID. HISTORY: 63 YEAR OLD FEMALE, WITH COMPLAINTS OF CHEST PAIN. HISTORY: RIGHT CORONARY ARTERY 30% BLOCKAGE, THROID PROBLEMS. NON-SMOKER, NON DRINKER. PHYSICIAL EXAMINATION: RESTING B.P.: 114/73 RESTING H.R.: 78 RESTING EKG: NORMAL PROTOCOL: LEXISCAN EXERCISE TIME: 3:30 B.P. AT PEAK STRESS: 106/72 IMPRESSION: LEXISCAN INJECTED, FOLLOWED BY CARDIOLITE PER PROTOCOL. SEE NUCLEAR MEDICINE REPORT. NO SUPRA VENTRICULAR TACHYCARDIA. NO VENTRICULAR TACHYCARDIA. NO PREMATURE VENTRICULAR COMPLEXES. NO PREMATURE ATRIAL COMPLEXES. PATIENT REPORTED NO CHEST PAIN OR TIGHTNESS THROUGHOUT PROCEDURE, OR RECOVERY.
--- NOTE | 2018-11-28 13:04 | P.HP ---
Certification for Inpatient Patient admitted to: Observation With expected LOS: <2 Midnights Patient will require the following post-hospital care: None Practitioner: I am a practitioner with admitting privileges, knowledge of patient current condition, hospital course, and medical plan of care. Services: Services provided to patient in accordance with Admission requirements found in Title 42 Section 412.3 of the Code of Federal Regulations Patient History Date of Service: 11/27/18 Reason for admission: chest pain rule out acute coronary syndrome History of Present Illness: . Patient is a 63-year-old female who came to the hospital with chest pain. Pain was mainly the sternal region. There was no radiation. She said the chest pain went away. She has no reproducible chest pain. She was not moving anything heavy. No shortness of breath or diaphoresis. She denies smoking. She denies any history of diabetes. She does have hypertension. She will be admitted to the hospital for further workup. Allergies clindamycin Allergy (Verified 11/27/18 14:41) Itching/Hives/Rash Home Medications: Aspirin Chewable [Aspirin Chewable*] 81 mg PO BEDTIME 11/27/18 Atorvastatin Calcium 40 mg PO BEDTIME 11/27/18 Cholecalciferol (Vitamin D3) [Vitamin D3] 5,000 cap PO DAILY 11/27/18 Levothyroxine Sodium [Synthroid] 112 mcg PO DAILY 11/27/18 Multivitamin [Multiple Vitamins] 1 tab PO DAILY 11/27/18 - Past Medical/Surgical History Has patient received pneumonia vaccine in the past: No Diabetic: No -: CS 2x -: hip replacement left -: gallbladder surgery -: thyroidectomy 2009 -: tonsilectomy 1960 - Family History Mother Medical History: Heart disease, Cancer Notes: lymophoma, Father Medical History: Heart disease Notes: high cholesterol, demetia, - Social History Smoking Status: Never smoker Alcohol use: No CD- Drugs: No Caffeine use: No Place of Residence: Home Review of Systems 10-point ROS is otherwise unremarkable Physical Examination - Vital Signs Temperature: 97.2 F Blood Pressure: 111/63 Pulse: 74 Respirations: 16 Pulse Ox (%): 97 - Physical Exam General: Alert, In no apparent distress, Oriented x3 HEENT: Atraumatic, PERRLA, Mucous membr. moist/pink, EOMI, Sclerae nonicteric Neck: Supple, 2+ carotid pulse no bruit, No LAD, Without JVD or thyroid abnormality Respiratory: Clear to auscultation bilaterally, Normal air movement Cardiovascular: Regular rate/rhythm, Normal S1 S2 Gastrointestinal: Normal bowel sounds, Soft and benign, Non-distended, No tenderness Musculoskeletal: No clubbing, No swelling, No tenderness Integumentary: No rashes Neurological: Normal gait, Normal speech, Normal strength at 5/5 x4 extr, Normal tone, Sensation intact, Normal affect Lymphatics: No axilla or inguinal lymphadenopathy Assessment & Plan - Problems (Diagnosis) (1) Chest pain, rule out acute myocardial infarction Current Visit: Yes Status: Acute - Plan 1. Serial troponins and EKG 2. Cardiology consultation 3. Echocardiogram and inpatient stress test(pending cardiology evaluation) 4. Anti-platelet therapy, anti coagulation, beta-latonya, statin, and O2 as needed 5. IV morphine for pain 6. Nitro p.r.n. Discharge Plan: Home Plan to discharge in: 24 Hours - Advance Directives Does patient have a Living Will: No Does patient have a Durable POA for Healthcare: No - Code Status/Comfort Care Code Status Assessed: Yes Code Status: Full Code Critical Care: No Time Spent Managing PTS Care (In Minutes): 45
--- NOTE | 2018-11-28 14:19 | P.SSS ---
Patient History Date of Service: 11/28/18 Reason for admission: chest pain rule out acute coronary syndrome History of Present Illness: Patient is a 63-year-old female who came to the hospital with chest pain. Pain was mainly the sternal region. There was no radiation. She said the chest pain went away. She has no reproducible chest pain. She was not moving anything heavy. No shortness of breath or diaphoresis. She denies smoking. She denies any history of diabetes. She does have hypertension. She will be admitted to the hospital for further workup. Allergies clindamycin Allergy (Verified 11/27/18 14:41) Itching/Hives/Rash Home Medications: Aspirin Chewable [Aspirin Chewable*] 81 mg PO BEDTIME 11/27/18 Atorvastatin Calcium 40 mg PO BEDTIME 11/27/18 Cholecalciferol (Vitamin D3) [Vitamin D3] 5,000 cap PO DAILY 11/27/18 Levothyroxine Sodium [Synthroid] 112 mcg PO DAILY 11/27/18 Multivitamin [Multiple Vitamins] 1 tab PO DAILY 11/27/18 - Past Medical/Surgical History Has patient received pneumonia vaccine in the past: No Diabetic: No -: CS 2x -: hip replacement left -: gallbladder surgery -: thyroidectomy 2009 -: tonsilectomy 1960 - Family History Mother -: Heart disease, Cancer Notes: lymophoma, Father -: Heart disease Notes: high cholesterol, demetia, - Social History Smoking Status: Never smoker Alcohol use: No CD- Drugs: No Caffeine use: No Place of Residence: Home Review of Systems 10-point ROS is otherwise unremarkable Physical Examination - Vital Signs Temperature: 97.2 F Blood Pressure: 111/63 Pulse: 74 Respirations: 16 Pulse Ox (%): 97 - Physical Exam General: Alert, In no apparent distress HEENT: Atraumatic, PERRLA, Mucous membr. moist/pink, EOMI, Sclerae nonicteric Neck: Supple, 2+ carotid pulse no bruit, No LAD, Without JVD or thyroid abnormality Respiratory: Clear to auscultation bilaterally, Normal air movement Cardiovascular: Regular rate/rhythm, Normal S1 S2 Gastrointestinal: Normal bowel sounds, No tenderness Musculoskeletal: No tenderness Integumentary: No rashes Neurological: Normal gait, Normal speech, Normal strength at 5/5 x4 extr, Normal tone, Normal affect Lymphatics: No axilla or inguinal lymphadenopathy - Diagnosis (Problem(s)) (1) Chest pain, rule out acute myocardial infarction Current Visit: Yes Status: Acute Treatment Summary: Over the hospital course patient remained stable Patient was initially admitted to the hospital for chest pain ACS rule out. Troponin were negative x2. EKG was within normal limits. Patient had echo and stress test done which were all within normal limits. Patient thus was ruled out for acute coronary syndrome. Patient's chest pain was most likely secondary to musculoskeletal pain. Patient was asked to follow up with primary care provider in about 1-2 days post discharge. - Disposition Disposition: ROUTINE DISCHARGE Condition: GOOD Diet: Regular Activity: Ad karen
--- NOTE | 2018-11-28 14:51 | ECHO ---
HEIGHT: 5 ft 5 in WEIGHT: 188 lb 0 oz DATE OF STUDY: 11/28/[address]: Audelia Lopez MD 2-DIMENSIONAL: YES M.MODE: YES DOPPLER: YES COLOR FLOW: YES TDS: PORTABLE: DEFINITY: BUBBLE STUDY: DIAGNOSIS: CHEST PAIN CARDIAC HISTORY: CATHERIZATION: NO SURGERY: NO PROSTHETIC VALVE: NO PACEMAKER: NO MEASUREMENTS (cm) DIASTOLIC (NORMALS) SYSTOLIC (NORMALS) IVSd 0.7 (0.6-1.2) LA Diam 3.0 (1.9-4.0) LVEF 62% LVIDd 4.7 (3.5-5.7) LVIDs 3.2 (2.0-3.5) %FS 33% LVPWd 0.9 (0.6-1.2) Ao Diam 2.5 (2.0-3.7) 2 DIMENSIONAL ASSESSMENT: RIGHT ATRIUM: NORMAL LEFT ATRIUM: NORMAL RIGHT VENTRICLE: NORMAL LEFT VENTRICLE: NORMAL TRICUSPID VALVE: NORMAL MITRAL VALVE: NORMAL PULMONIC VALVE: NORMAL AORTIC VALVE: NORMAL PERICARDIAL EFFUSION: NONE AORTIC ROOT: NORMAL LEFT VENTRICULAR WALL MOTION: NORMAL DOPPLER/COLOR FLOW: MILD TRICUSPID REGURGITATION. COMMENTS: MILD TRICUSPID REGURGITATION. NORMAL RIGHT VENTRICULAR SYSTOLIC PRESSURE. NORMAL LEFT VENTRICULAR SIZE AND FUNCTION. NO WALL MOTION ABNORMALITY. TECHNOLOGIST: JUAN MIGUEL MERAZ
--- NOTE | 2018-11-29 07:18 | PN ---
Date of Progress Note: 11/28/2018 Ms. Bowens is a 63-year-old, came in with chest pain, admitted to Dr. Lopez. Has a history of mild RC A disease approximately 30% by CT angiography in August of 2018 when she had been to [facility] for the same reasons. Overnight, she had no further chest pain. Telemetry showed no changes. Echocardi ogram was done that was normal. The Lexiscan is pending. She can go home if that is normal. Afterw ards, continue her medication. I am feeling that her symptoms are noncardiac. It is substernal, con stant last 4 days. She may be having some reflux issues. I will discuss the case further with Dr. Jaime anderson after the Lexiscan is back. JAROCHO/SID Voice ID: [id number] Report ID: [id number]
== END 2018-11-28 15:45 | disposition home or self-care (01) ==
LOC: ER 11:01 → ERHOLD 13:03 → 2ND 13:48
PROVIDERS: ADMIT Family Medicine; ATTEND Hospitalist
DX: R07.9 Chest pain, unspecified (principal); Z79.82 Long term (current) use of aspirin; Z96.642 Presence of left artificial hip joint; Z23 Encounter for immunization
CPT/HCPCS: 36415; 71045; 78452; 80048; 80053; 80076; 81003; 83690; 83735; 83880; 84443; 84484; 85025; 85610; 90670; 93005; 93017; 93306; 96361; 96372; 96374; 99285; A9500; G0009; G0378; J1650; J2785; J7030